=== PATIENT | male | born 1990 ===

== ENCOUNTER 2018-04-18 10:38 | Emergency (ER) | payer SELFPAY ==
[~2018-04-18] VITALS: Ht 175.3 cm; Wt 111.1 kg
--- NOTE | 2018-04-18 10:55 | ED Upper Extremity ---
General Stated Complaint: CP Source: patient Exam Limitations: no limitations History of Present Illness Date Seen by Provider: Apr 18, 2018 Time Seen by Provider: 10:54 Initial Comments to ER with sharp left sided chest pain worse with deep breathing since 6 AM this morning. Smokes one half pack of cigarettes per day. Onset: this morning Severity: moderate Pain/Injury Location: left other (chest) Method of Injury: unknown Modifying Factors: Worse With Movement Allergies and Home Medications Allergies Coded Allergies: No Known Drug Allergies (Unverified , 04/18/18) Home Medications Azithromycin 250 Mg Tablet, 250 MG PO UD TAKE 2 TABLETS ON DAY ONE THEN TAKE 1 TABLET DAILY FOR FOUR MORE DAYS Prescribed by: PADILLA VIGIL on 04/18/18 1112 Patient Home Medication List Home Medication List Reviewed: Yes Constitutional: see HPI EENTM: see HPI Respiratory: no symptoms reported; No cough, No short of breath Cardiovascular: no symptoms reported Genitourinary: no symptoms reported Musculoskeletal: no symptoms reported Skin: no symptoms reported, change in hair/nails Past Nfacsvw-Bsixdn-Wovvwo Hx Patient Social History Recent Foreign Travel: No Contact w/Someone Who Travel: No Physical Exam Vital Signs Vital Signs - First Documented 04/18/18 10:45 Temp 100.0 Pulse 75 Resp 18 B/P (MAP) 107/87 (94) Capillary Refill : General Appearance: WD/WN, no apparent distress HEENT: PERRL/EOMI, normal ENT inspection Neck: non-tender, full range of motion Respiratory: normal breath sounds, no respiratory distress, no accessory muscle use Gastrointestinal: normal bowel sounds, non tender Shoulder: normal inspection, non-tender Elbow/Forearm: normal inspection, non-tender Wrist: Yes normal inspection, Yes non-tender Hand: normal inspection, non-tender Neurologic/Tendon: normal sensation, normal motor functions, normal tendon functions Neurologic/Psychiatric: alert, normal mood/affect, oriented x 3 Skin: normal color, warm/dry Progress/Results/Core Measures Results/Orders My Orders Orders - PADILLA VIGIL APRN Ekg Tracing (04/18/18 10:52) Chest Pa/Lat (2 View) (04/18/18 10:52) Ibuprofen Tablet (Motrin Tablet) (04/18/18 11:00) Vital Signs/I&O 04/18/18 10:45 Temp 100.0 Pulse 75 Resp 18 B/P (MAP) 107/87 (94) Departure Communication (Admissions) she does have a temperature of 100 pleuritic left-sided chest pain but no cough. He is a smoker. I'll put him on some antibiotics and anti- inflammatories.he is neither tachycardic nor hypoxic Impression Primary Impression: Pleuritic chest pain Disposition: HOME, SELF-CARE Condition: Stable Departure-Patient Inst. Decision time for Depature: 11:11 Referrals: NO,LOCAL PHYSICIAN (PCP/Family) Primary Care Physician Patient Instructions: Pleuritic Chest Pain (DC) Add. Discharge Instructions: 1. Take either ibuprofen 600 mg to 800 mg every 8 hoursor naproxen 500 mg every 12 hours. Take the antibiotics as directed and return to ER for any worsening. Scripts Azithromycin (Azithromycin) 250 Mg Tablet 250 MG PO UD, #6 TAB TAKE 2 TABLETS ON DAY ONE THEN TAKE 1 TABLET DAILY FOR FOUR MORE DAYS Prov: PADILLA VIGIL APRN 04/18/18 Work/School Note: Work Release Form Date Seen in the Emergency Department: Apr 18, 2018 Return to Work: Apr 20, 2018 PADILLA VIGIL APRN Apr 18, 2018 10:55
[2018-04-18] MEDS ORDERED: IBUPROFEN 800 MG (MOTRIN) TAB PO ONE (11:00)
[2018-04-18] MEDS ORDERED: AZIT250T12 PO (11:12)
--- NOTE | 2018-04-18 11:38 | Diagnostic Imaging Report ---
INDICATION: Anterior chest pain. Time of exam: 11:22 AM No prior studies are available for comparison. The heart size is normal. The pulmonary vascularity is unremarkable. The lungs are clear. No infiltrate, effusion or pneumothorax is detected. Impression: No acute cardiopulmonary process is detected. Dictated by: Dictated on workstation # [id number]
[2018-04-18 11:59] VITALS: BP 140/72
== END 2018-04-18 12:05 | disposition home or self-care (01) ==
LOC: ER 10:42
DX: R07.81 Pleurodynia (principal); F17.210 Nicotine dependence, cigarettes, uncomplicated
CPT/HCPCS: 71046; 93005

== ENCOUNTER 2020-05-24 16:05 | Observation (INO) | payer SELFPAY ==
[~2020-05-24] VITALS: Ht 175.3 cm; Wt 108.4 kg
[~2020-05-24 16:05] MED LIST: AZIT250T12 PO
[2020-05-24] MEDS ORDERED: cefTRIAXone FOR IV USE 1,000 MG in WATER (STERILE) FOR INJECTION 10 ML IV STA (16:19)
[2020-05-24] MEDS ORDERED: KETOROLAC 30 MG/ML VIAL IVP STA (16:19)
[2020-05-24] MEDS ORDERED: LACTATED RINGERS 1,000 ML IV ONE (16:19)
--- NOTE | 2020-05-24 16:28 | ED EENT ---
History of Present Illness General Chief Complaint: Dental Problems/Pain Stated Complaint: ABCESS TOOTH Nursing Triage Note: pt woke up with pain ans swelling on left side of mouth. pt went to [facility] and they diagnosed pt with tooth abscess and prescribed amoxicillin. since this morning, swelling has progressed to the point that pt can no longer breathe out of nose. pt denies difficulty breathing/swallowing through mouth. Source: patient History of Present Illness Date Seen by Provider: May 24, 2020 Time Seen by Provider: 16:12 Initial Comments PT ARRIVES VIA POV--STATES HE WAS SENT HERE FROM [facility] --STATES HE WAS AT THE DENTAL CLINIC PT STATES HE HAS A DENTAL ABSCESS--HAS PAIN AND SWELLING TO LEFT SIDE OF FACE, BEGAN TODAY HAS BEEN HAVING PROBLEMS WITH TOOTH FOR THE LAST COUPLE OF MONTHS, BUT HAS NEVER BEEN THIS BAD WAS GIVEN RX FOR AUGMENTIN 875 MG TODAY, NO RX FOR PAIN MEDICATION PT DENIES FEVER NO PROBLEMS SWALLOWING OR BREATHING THROUGH MOUTH. LEFT SIDE OF NOSE IS SWOLLEN AND IS HAVING DIFFICULTY BREATHING THROUGH HIS NOSE. NO KNOWN SICK CONTACTS OR EXPOSURE TO COVID-19 PT WORKS AT "[employer] PCP: [facility] Allergies and Home Medications Allergies Coded Allergies: No Known Drug Allergies (Unverified , 04/18/18) Home Medications Azithromycin 250 Mg Tablet, 250 MG PO UD TAKE 2 TABLETS ON DAY ONE THEN TAKE 1 TABLET DAILY FOR FOUR MORE DAYS Prescribed by: PADILLA VIGIL on 04/18/18 1112 Patient Home Medication List Home Medication List Reviewed: Yes Review of Systems Review of Systems Constitutional: no symptoms reported; No chills, No diaphoresis, No fever Eyes: Other (SWELLING AROUND LEFT EYE) Ears: No Symptoms Reported Nose: other (SWELLING TO NOSE AND DECREASED ABILITY TO BREATHE THRU NOSE) Mouth: see HPI, pain, swelling; denies bloody discharge, denies clear discharge Throat: no symptoms reported; denies neck stiffness, denies hoarse, denies muffled Respiratory: no symptoms reported Cardiovascular: no symptoms reported Gastrointestinal: no symptoms reported Musculoskeletal: no symptoms reported Skin: no symptoms reported Neurological: No Symptoms Reported Hematologic/Lymphatic: No Symptoms Reported Immunological/Allergic: no symptoms reported Past Aaknvkx-Mpafxi-Yubfdz Hx Past Med/Social Hx: Reviewed and Corrections made Patient Social History Alcohol Use: Denies Use Recreational Drug Use: No Smoking Status: Current Everyday Smoker (1/2 PPD) Type Used: Cigarettes 2nd Hand Smoke Exposure: No Recent Foreign Travel: No Contact w/Someone Who Travel: No Recent Infectious Disease Expo: No Recent Hopitalizations: No Seasonal Allergies Seasonal Allergies: No Past Medical History Surgeries: No Respiratory: No Cardiac: No Neurological: No Genitourinary: No Gastrointestinal: No Musculoskeletal: No Endocrine: No HEENT: Yes (DENTAL CARIES) Cancer: No Psychosocial: No Integumentary: No Blood Disorders: No Physical Exam Vital Signs Vital Signs - First Documented 05/24/20 16:13 Temp 36.9 Pulse 92 Resp 20 B/P (MAP) 151/106 (121) Pulse Ox 97 O2 Delivery Room Air Height, Weight, BMI Height: 5'9.00" Weight: 245lbs. oz. 111.045739mg; 28.00 BMI Method:Stated General Appearance: WD/WN, no apparent distress, other (FLAT AFFECT. ) Eyes: left eye other (MILD LEFT PERIORBITAL EDEMA--BELOW THE EYE. ); bilateral eye PERRL, bilateral eye EOMI Ears: bilateral ear TM normal Nose: other (SWELLING TO LEFT SIDE OF NOSE/FACE) Mouth/Throat: other (MULTIPLE DENTAL CARIES, BUT LEFT UPPER PREMOLARS WITH DECAY AND SIGNIFICANT SWELLING/INFLAMMATION OF ADJACENT GUM TISSUE. NO DRAINAGE OR SIGNIFICANT FLUCTUANCE. MODERATE SWELLING TO LEFT MAXILLA AREA. 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 ) Skin: normal color, warm/dry Progress/Results/Core Measures Results/Orders Lab Results Laboratory Tests Test 05/24/20 16:20 Range/Units White Blood Count 9.6 4.3-11.0 10^3/uL Red Blood Count 4.98 4.35-5.85 10^6/uL Hemoglobin 15.6 13.3-17.7 G/DL Hematocrit 44 40-54 % Mean Corpuscular Volume 87 80-99 FL Mean Corpuscular Hemoglobin 31 25-34 PG Mean Corpuscular Hemoglobin Concent 36 32-36 G/DL Red Cell Distribution Width 12.2 10.0-14.5 % Platelet Count 341 130-400 10^3/uL Mean Platelet Volume 9.1 7.4-10.4 FL Neutrophils (%) (Auto) 70 42-75 % Lymphocytes (%) (Auto) 18 12-44 % Monocytes (%) (Auto) 7 0-12 % Eosinophils (%) (Auto) 5 0-10 % Basophils (%) (Auto) 1 0-10 % Neutrophils # (Auto) 6.7 1.8-7.8 X 10^3 Lymphocytes # (Auto) 1.7 1.0-4.0 X 10^3 Monocytes # (Auto) 0.6 0.0-1.0 X 10^3 Eosinophils # (Auto) 0.5 H 0.0-0.3 10^3/uL Basophils # (Auto) 0.1 0.0-0.1 10^3/uL Prothrombin Time 12.5 12.2-14.7 SEC INR Comment 0.9 0.8-1.4 Activated Partial Thromboplast Time 31 24-35 SEC Sodium Level 138 135-145 MMOL/L Potassium Level 3.8 3.6-5.0 MMOL/L Chloride Level 105 98-107 MMOL/L Carbon Dioxide Level 21 21-32 MMOL/L Anion Gap 12 5-14 MMOL/L Blood Urea Nitrogen 9 7-18 MG/DL Creatinine 0.91 0.60-1.30 MG/DL Estimat Glomerular Filtration Rate > 60 BUN/Creatinine Ratio 10 Glucose Level 108 H 70-105 MG/DL Lactic Acid Level 1.08 0.50-2.00 MMOL/L Calcium Level 9.1 8.5-10.1 MG/DL Corrected Calcium 8.7 8.5-10.1 MG/DL Total Bilirubin 0.5 0.1-1.0 MG/DL Aspartate Amino Transf (AST/SGOT) 19 5-34 U/L Alanine Aminotransferase (ALT/SGPT) 35 0-55 U/L Alkaline Phosphatase 87 40-136 U/L Total Protein 7.3 6.4-8.2 GM/DL Albumin 4.5 3.2-4.5 GM/DL Amylase Level 32 25-125 U/L Lipase 16 8-78 U/L My Orders Orders - JENN MARQUEZ DO Ed Iv/Invasive Line Start (05/24/20 16:19) Amylase (05/24/20 16:19) Cbc With Automated Diff (05/24/20 16:19) Comprehensive Metabolic Panel (05/24/20 16:19) Lactic Acid Analyzer (05/24/20 16:19) Lipase (05/24/20 16:19) Procalcitonin (Pct) (05/24/20 16:19) Protime With Inr (05/24/20 16:19) Partial Thromboplastin Time (05/24/20 16:19) Blood Culture (05/24/20 16:19) Ed Iv/Invasive Line Start (05/24/20 16:19) Lactated Ringers (Lr 1000 Ml Iv Solution (05/24/20 16:19) Ceftriaxone For Iv Use (Rocephin For I (05/24/20 16:19) Ketorolac Injection (Toradol Injection) (05/24/20 16:19) Ct Maxillofacial W (05/24/20 16:23) Iohexol Injection (Omnipaque 350 Mg/Ml 1 (05/24/20 17:00) Received Contrast (Hold Metformin- Contr (05/24/20 17:00) Ns (Ivpb) (Sodium Chloride 0.9% Ivpb Bag (05/24/20 17:00) Medications Given in ED Current Medications Medications Dose Ordered Sig/Merline Route Start Time Stop Time Status Last Admin Dose Admin Iohexol 75 ml ONCE ONCE IV 05/24/20 17:00 05/24/20 17:01 DC 05/24/20 17:00 75 ML Lactated Ringer's 1,000 ml @ 0 mls/hr Q0M ONCE IV 05/24/20 16:19 05/24/20 16:22 DC 05/24/20 16:33 1,000 MLS/HR Sodium Chloride 100 ml ONCE ONCE IV 05/24/20 17:00 05/24/20 17:01 DC 05/24/20 17:00 100 ML Vital Signs/I&O 05/24/20 16:13 Temp 36.9 Pulse 92 Resp 20 B/P (MAP) 151/106 (121) Pulse Ox 97 O2 Delivery Room Air Blood Pressure Mean: 121 Progress Progress Note : Progress Note NO DETERIORATION IN PT'S CONDITION DURING ER STAY Diagnostic Imaging Comments CT MAXILLOFACIALS--PER RADIOLOGIST REPORT AT 1733 IMPRESSION: 1. Significant left infraorbital and left maxillary soft tissue swelling with mild overlying skin thickening anterior to the maxilla. Findings are favored to relate to underlying cellulitis. Small periapical lucencies are present, including involving tooth #9 and 16 involving the maxilla. Therefore, small periapical abscesses, particularly involving the 9th tooth should be considered. 2. Additional findings, as described above. 3. Paranasal sinuses are essentially clear without air-fluid level. Reviewed: Reviewed by Me Departure Communication (Admissions) [id number]--SPOKE WITH DR. BADILLO, WITH [facility] [place]BSERVATION Impression Primary Impression: Dental abscess Additional Impressions: Dental caries Facial cellulitis Disposition: ADMITTED INPATIENT Condition: Stable Admissions Decision to Admit Reason: Admit from ER (General) Decision to Admit/Date: May 24, 2020 Time/Decision to Admit Time: 17:40 Departure-Patient Inst. Referrals: NO,LOCAL PHYSICIAN (PCP/Family) Primary Care Physician JENN MARQUEZ DO May 24, 2020 16:28
[2020-05-24 16:32] LABS: BASOPHILS # (AUTO) 0.1 10^3/uL (0.0-0.1); BASOPHILS % (AUTO) 1 % (0-10); EOSINOPHILS # (AUTO) 0.5 10^3/uL (0.0-0.3); EOSINOPHILS % (AUTO) 5 % (0-10); HEMATOCRIT 44 % (40-54); HEMOGLOBIN 15.6 G/DL (13.3-17.7); LYMPHOCYTES # (AUTO) 1.7 X 10^3 (1.0-4.0); LYMPHOCYTES % (AUTO) 18 % (12-44); MEAN CORPUSCULAR HEMOGLOBIN 31 PG (25-34); MEAN CORPUSCULAR HGB CONC 36 G/DL (32-36); MEAN CORPUSCULAR VOLUME 87 FL (80-99); MEAN PLATELET VOLUME 9.1 FL (7.4-10.4); MONOCYTES # (AUTO) 0.6 X 10^3 (0.0-1.0); MONOCYTES % (AUTO) 7 % (0-12); NEUTROPHILS # (AUTO) 6.7 X 10^3 (1.8-7.8); NEUTROPHILS % (AUTO) 70 % (42-75); PLATELET COUNT 341 10^3/uL (130-400); RED CELL DISTRIBUTION WIDTH 12.2 % (10.0-14.5); WHITE BLOOD COUNT 9.6 10^3/uL (4.3-11.0)
[2020-05-24 16:45] LABS: INR 0.9 (0.8-1.4); PROTHROMBIN TIME PATIENT 12.5 SEC (12.2-14.7)
[2020-05-24 16:48] LABS: ALBUMIN 4.5 GM/DL (3.2-4.5); CHLORIDE 105 MMOL/L (98-107); POTASSIUM 3.8 MMOL/L (3.6-5.0); SODIUM 138 MMOL/L (135-145)
[2020-05-24 16:49] LABS: AMYLASE 32 U/L (25-125)
[2020-05-24 16:50] LABS: CALCIUM 9.1 MG/DL (8.5-10.1)
[2020-05-24 16:51] LABS: GLUCOSE 108 MG/DL (70-105); TOTAL PROTEIN 7.3 GM/DL (6.4-8.2)
[2020-05-24 16:52] LABS: BILIRUBIN,TOTAL 0.5 MG/DL (0.1-1.0); CARBON DIOXIDE 21 MMOL/L (21-32)
[2020-05-24 16:54] LABS: ALKALINE PHOSPHATASE 87 U/L (40-136); CREATININE SERUM 0.91 MG/DL (0.60-1.30); GFR ESTIMATED > 60
[2020-05-24 16:55] LABS: BUN/CREATININE RATIO 10
[2020-05-24 16:57] LABS: ALANINE AMINOTRANSFERASE 35 U/L (0-55)
[2020-05-24 16:58] LABS: LIPASE 16 U/L (8-78)
[2020-05-24] MEDS ORDERED: HOLD METFORMIN - RECEIVED CONTRAST 20 ML VIAL IV SCH (17:00)
[2020-05-24] MEDS ORDERED: NS 100 ML (IVPB) BAG IV ONE (17:00)
[2020-05-24] MEDS ORDERED: IOHEXOL 350 MG/ML 100 ML (OMNIPAQUE 350) VIAL IV ONE (17:00)
--- NOTE | 2020-05-24 17:20 | Diagnostic Imaging Report ---
PROCEDURE: CT maxillofacial with contrast. TECHNIQUE: After intravenous administration of contrast, axial images were obtained through the face and reformatted into coronal and sagittal planes. Auto Exposure Controls were utilized during the CT exam to meet ALARA standards for radiation dose reduction. INDICATION: Pain, swelling. COMPARISON: None available. FINDINGS: Intracranial contents are grossly unremarkable. The globes are intact. Mild left periorbital soft tissue swelling is present, greatest within the left infraorbital location. Retrobulbar fat bilaterally is unremarkable. The lamina papyracea are intact. No temporomandibular joint dislocation. Scattered periodontal disease is present. Additionally, a few small periapical cysts and periapical lucencies are noted. Parapharyngeal fat is symmetric and well maintained. Muscles of mastication are unremarkable. Significant fat stranding and skin thickening is identified anterior to the maxilla. No discrete focal fluid collection at this location. Fat within the subcutaneous tissues overlying the left maxilla and slightly overlying the left mandible. No definite osseous destruction or cortical breakthrough. The bilateral ostiomeatal complexes are patent, though the right is narrowed secondary to mucosal thickening. Destiny bullosa within the right middle turbinate. Mild leftward deviation of the nasal septum with associated leftward-projecting nasal spur. No acute facial fracture. The visualized airway is clear. IMPRESSION: 1. Significant left infraorbital and left maxillary soft tissue swelling with mild overlying skin thickening anterior to the maxilla. Findings are favored to relate to underlying cellulitis. Small periapical lucencies are present, including involving tooth #9 and 16 involving the maxilla. Therefore, small periapical abscesses, particularly involving the 9th tooth should be considered. 2. Additional findings, as described above. 3. Paranasal sinuses are essentially clear without air-fluid level. Dictated by: Dictated on workstation # [id number]
[2020-05-24 18:50] VITALS: BP 144/74
[2020-05-24] MEDS ORDERED: CATHETER FLUSH 10 ML SYR IV PRN (19:00)
--- NOTE | 2020-05-24 19:00 | NUR ---
RUDY PAINTING II admitted to room 408-1, with an admitting diagnosis of TOOTH ABCESS, on 05/24/20 from ED via WHEELCHAIR, accompanied by ED STAFF.RUDY PAINTING II introduced to surroundings, call light, bed controls, phone, TV, temperature control, lights, meal times, smoking policy, visitor policy, side rail policy, bathrooms and showers. Patient Rights given to patient in the handbook. RUDY PAINTING II verbalizes understanding that [facility] is not responsible for the loss or damage to any personal effects or valuables that are kept in the patients posession during their hospitalization. RUDY PAINTING II verbalizes understanding of Interdisciplinary Patient Education. Patient and/or family were informed about the Rapid Response Team and its purpose.
[2020-05-24 19:37] VITALS: BP 144/74
[2020-05-24] MEDS: D5 1/2 NS W/KCL 20 MEQ/L 1,000 ML IV SCH (21:09)
[2020-05-24] MEDS: KETOROLAC 30 MG/ML VIAL IV PRN (21:12)
--- OUTSIDE RECORDS SUMMARY | 2020-05-24 21:38 | XMS REPORT | Continuity of Care Document ---
Demographics Address [address] [place] [address] Preferred Language Unknown Marital Status Unknown Lutheran Affiliation Unknown Race Unknown Ethnic Group Unknown Author Organization Unknown Address Unknown Phone Unavailable Allergies Active Description Code Type Severity Reaction Onset Reported/Identified Relationship to Patient Clinical Status Yes NO KNOWN DRUG ALLERGIES UNKNOWN NO KNOWN DRUG ALLERG Yes NO KNOWN DRUG ALLERGIES UNKNOWN UNKNOWN Yes No Known Drug Allergies [id number] Drug Allergy Unknown N/A 04/18/2018 Medications Medication Packaging Start Date St op Date Route Dosage Sig FAMOTIDINE VIAL INJ 20 MG/2CC (PEPCID VIAL ) MG 03/05/2019 03/05/2019 ONCE&1038 NORMAL SALINE 1000CC IV BAG INJ 0.9 % (NS 1000CC IV BAG) ml 03/05/2019 03/20/2019 CONTINUOUSEVERY 0 Hour FENTANYL INJ 100 MCG/2CC VIAL MCG 03/05/2019 03/05/2019 ONCE&1040 PROCHLORPERAZINE VIAL INJ 10 MG/2CC (COMPAZINE VIAL) MG 03/05/2019 03/12/2019 PRN Q6H KETOROLAC VIAL INJ 30 MG/CC (TORADOL VIAL) MG 03/05/2019 03/06/2019 PRN EVERY 6 Hour ONDANSETRON VIAL INJ 4 MG/2CC (ZOFRAN 2CC VIAL) MG 03/05/2019 03/12/2019 PRN Q4H METOCLOPRAMIDE VIAL INJ 10 M G/2CC (REGLAN 2CC VIAL) MG 03/05/2019 03/15/2019 PRN Q8H D5 NORMAL SALINE 1000CC INJ (D5NS 1000CC IV BAG) ml 03/05/2019 03/12/2019 CONTINUOUSEVERY 0 Hour D5 NORMAL SALINE 1000CC INJ (D5NS 1000CC IV BAG) ml 03/05/2019 03/12/2019 CONTINUOUSEVERY 0 Hour ACETAMINOPHEN ORAL TABLET 325mg(Tylenol) MG 03/05/2019 04/04/2019 PRN EVERY 6 Hour KETOROLAC VIAL INJ 30 MG/CC (TORADOL VIAL) MG 03/05/2019 03/10/2019 Q6H&0600,1200,1800,2359 ONDANSETRON VIAL INJ 4 MG/2CC (ZOFRAN 2CC VIAL) MG 03/05/2019 03/12/2019 PRN Q4H Piperacillin-tazobactam 3.37 5 Gm IV recon soln (Zosyn) GM 03/05/2019 03/12/2019 Q6H&0600,1200,1800,2359 METOCLOPRAMIDE VIAL INJ 10 M G/2CC (REGLAN 2CC VIAL) MG 03/05/2019 03/15/2019 PRN Q8H Problems Date Dx Coded Attending Type Code Diagnosis Diagnosed By 04/18/2018 PADILLA VIGIL APRN Ot F17.210 NICOTINE DEPENDENCE, CIGARETTES, UNCOMPL 04/18/2018 PADILLA VIGIL APRN Ot R07.81 PLEURODYNIA 04/18/2018 PADILLA VIGIL APRN Ot R07.89 OTHER CHEST PAIN 04/21/2018 PADILLA VIGIL APRN Ot F17.210 NICOTINE DEPENDENCE, CIGARETTES, UNCOMPL 04/21/2018 PADILLA VIGIL APRN Ot R07.81 PLEURODYNIA 04/21/2018 PADILLA VIGIL APRN Ot R07.89 OTHER CHEST PAIN 03/05/2019 LEISURE, LYNIETA W 789.0 ABDOMINAL PAIN 03/05/2019 LEISURE, LYNIETA W R10.9 UNSPECIFIED ABDOMINAL PAIN 03/05/2019 LEISURE, LYNIETA W 789.0 ABDOMINAL PAIN 03/05/2019 LEISURE, LYNIETA W R10.9 UNSPECIFIED ABDOMINAL PAIN 03/05/2019 LEISURE, LYNIETA W 789.01 ABDOMINAL PAIN, RIGHT UPPER QUADRANT 03/05/2019 LEISURE, LYNIETA W R10.11 RIGHT UPPER QUADRANT PAIN 03/05/2019 Helen Stewart W 560.1 PARALYTIC ILEUS 03/05/2019 Helen Stewart W 787.0 NAUSEA AND VOMITING 03/05/2019 Helen Stewart K56.0 PARALYTIC ILEUS 03/05/2019 Helen Stewart R11.2 NAUSEA WITH VOMITING, UNSPECIFIED 03/05/2019 Helen Stewart W 558.9 OTHER AND UNSPECIFIED NONINFECTIOUS GASTROENTERITIS AN D COLITIS 03/05/2019 Helen Stewart W 560.1 PARALYTIC ILEUS 03/05/2019 Terry, [place] W 787.0 NAUSEA AND VOMITING 03/05/2019 Helen Stewart W K52.9 NONINFECTIVE GASTROENTERITIS AND COLITIS, UNSPECIFIED 03/05/2019 Helen Stewart W K56.0 PARALYTIC ILEUS 03/05/2019 Helen Stewart W R11.2 NAUSEA WITH VOMITING, UNSPECIFIED 03/06/2019 Helen Stewart W 536.2 PERSISTENT VOMITING 03/06/2019 Helen Stewart W 558.9 OTHER AND UNSPECIFIED NONINFECTIOUS GASTROENTERITIS AN D COLITIS 03/06/2019 Helne Stewart W 560.1 PARALYTIC ILEUS 03/06/2019 Helen Stewart W 780.60 FEVER, UNSPECIFIED 03/06/2019 Helen Stewart W 787.0 NAUSEA AND VOMITING 03/06/2019 Helen Stewart W 789.01 ABDOMINAL PAIN, RIGHT UPPER QUADRANT 03/06/2019 Helen Stewart W 789.06 ABDOMINAL PAIN, EPIGASTRIC 03/06/2019 Helen Stewart W K52.9 NONINFECTIVE GASTROENTERITIS AND COLITIS, UNSPECIFIED 03/06/2019 Helen Stewart W K56.0 PARALYTIC ILEUS 03/06/2019 Helen Stewart W R10.11 RIGHT UPPER QUADRANT PAIN 03/06/2019 Helen Stewart W R10.13 EPIGASTRIC PAIN 03/06/2019 Helen Stewart W R11.10 VOMITING, UNSPECIFIED 03/06/2019 Helen Stewart W R11.2 NAUSEA WITH VOMITING, UNSPECIFIED 03/06/2019 Helen Stewart W R50.9 FEVER, UNSPECIFIED Procedures There is no data. Results Test Result Range Lipase - 03/05/19 10:45 Lipase 13 U/L 7-59 Urinalysis - 03/05/19 10:45 Icotest N/A Negative Urine Volume Urine Volume Sufficient (10mL) Urine-Appearance Clear Clear Urine-Bacteria Trace Urine-Bilirubin Negative Negative Urine-Blood Negative Negative Urine-Color Yellow Colorless-[place] ow Urine-Epithelial Cells 0-5/HPF Urine-Glucose Negative Negative Urine-Ketones Negative Negative Urine-Leukocytes Negative Negative Urine-Nitrite Negative Negative Urine-Other Urine Saved if Culture Need ed (48hrs from time of collection) Urine-pH 5.0 5-8.5 Urine-Protein Negative Negative Urine-RBC Negative Urine-Specific [place] 1.025 1.000-1 .030 Urine-WBC Negative Urobilinogen 0.2 E.U./dL 0.2-1.0 BMP - 03/06/19 07:00 Anion Gap 13 6-14 BUN 13 mg/dL 5-25 Calcium 8.8 mg/dL 8.3-10.4 Chloride 109 mmol/L 95-114 CO2 23 mEq/L 22-33 Creat 0.97 mg/dL 0.50-1.50 eGFR 93 mL/min/1.73m2 >59 Glucose 118 mg/dL 70-110 Osmo 292 280-295 Potassium 3.6 mmol/L 3.5-5.3 Sodium 141 mmol/L 134-148 Complete blood count (CBC) with automate d white blood cell (WBC) differential - 05/24/20 16:20 Blood leukocytes automated count (number/volume) 9.6 10*3/uL 4.3-11.0 Blood erythrocytes automated count (number/volume) 4.98 10*6/uL 4.35-5.85 Venous blood hemoglobin measurement (mass/volume) 15.6 g/dL 13.3-17.7 Blood hematocrit (volume fraction) 44 % 40-54 Automated erythrocyte mean corpuscular volume 87 [ foz_us] 80-99 Automated erythrocyte mean corpuscular h emoglobin (mass per erythrocyte) 31 pg 25-34 Automated erythrocyte mean corpuscular h emoglobin concentration measurement (mass/volume) 36 g/dL 32-36 Automated erythrocyte distribution width ratio 12. 2 % 10.0- 14.5 Automated blood platelet count (count/volume) 341 10*3/uL 130-400 Automated blood platelet mean volume measurement 9.1 [foz_us] 7.4-10.4 Automated blood neutrophils/100 leukocytes 70 % 42-75 Automated blood lymphocytes/100 leukocytes 18 % 12-44 Blood monocytes/100 leukocytes 7 % 0-12 Automated blood eosinophils/100 leukocytes 5 % 0-10 Automated blood basophils/100 leukocytes 1 % 0-10 Blood neutrophils automated count (number/volume) 6.7 10*3 1.8-7.8 Blood lymphocytes automated count (number/volume) 1.7 10*3 1.0-4.0 Blood monocytes automated count (number/volume) 0. 6 10*3 0.0-1.0 Automated eosinophil count 0.5 10*3/uL 0 .0-0.3 Automated blood basophil count (count/volume) 0.1 10*3/uL 0.0-0.1 PT panel in platelet poor plasma by coag ulation assay - 05/24/20 16:20 Prothrombin time (PT) in platelet poor plasma by coagu lation assay 12.5 s 12.2-14.7 INR in platelet poor plasma or blood by coagulation as say 0.9 0.8-1.4 Activated partial thromboplastin time (a PTT) in platelet poor plasma bycoagulation assay - 05/24/20 16:20 Activated partial thromboplastin time (a PTT) in platelet poor plasma bycoagulation assay 31 s 24-35 Comprehensive metabolic panel - 05/24/20 16:20 Serum or plasma sodium measurement (moles/volume) 138 mmol/L 135-145 Serum or plasma potassium measurement (moles/volume) 3.8 mmol/L 3.6-5.0 Serum or plasma chloride measurement (moles/volume) 105 mmol/L 98-107 Carbon dioxide 21 mmol/L 21-32 Serum or plasma anion gap determination (moles/volume) 12 mmol/L 5-14 Serum or plasma urea nitrogen measurement (mass/volume ) 9 mg/dL 7-18 Serum or plasma creatinine measurement (mass/volume) 0.91 mg/dL 0.60-1.30 Serum or plasma urea nitrogen/creatinine mass ratio 10 NRG Serum or plasma creatinine measurement w ith calculation of estimated glomerular filtration rate > NRG Serum or plasma glucose measurement (mass/volume) 108 mg/dL 70-105 Serum or plasma calcium measurement (mass/volume) 9.1 mg/dL 8.5-10.1 Serum or plasma total bilirubin measurement (mass/volu me) 0.5 mg/dL 0.1-1.0 Serum or plasma alkaline phosphatase fran surement (enzymatic activity/volume) 87 U/L 40-136 Serum or plasma aspartate aminotransfera se measurement (enzymatic activity/volume) 19 U/L 5-34 Serum or plasma alanine aminotransferase measurement (enzymatic activity/volume) 35 U/L 0-55 Serum or plasma protein measurement (mass/volume) 7.3 g/dL 6.4-8.2 Serum or plasma albumin measurement (mass/volume) 4.5 g/dL 3.2-4.5 CALCIUM CORRECTED 8.7 mg/dL 8.5-10.1 PROCALCITONIN (PCT) - 05/24/20 16:20 PROCALCITONIN (PCT) 0.02 ng/mL <0.10 Blood lactic acid measurement (moles/vol ume) - 05/24/20 16:20 Blood lactic acid measurement (moles/volume) 1.08 mmol/L 0.50-2.00 Serum or plasma amylase measurement (enz ymatic activity/volume) - 05/24/20 16:20 Serum or plasma amylase measurement (enzymatic activit y/volume) 32 U/L 25-125 Lipase - 05/24/20 16:20 Lipase 16 U/L 8-78 Encounters ACCT No. Visit Date/Time Discharge Status Pt. Type Provider Facility Loc./Unit Complaint [id number] 03/05/2019 15:45:00 03/06/2019 09:55: 00 DIS Outpatient [facility] MED-SURG [id number] 03/05/2019 15:15:00 03/05/2019 23:59: 00 DIS Outpatient Terry, [facility] [id number] 03/05/2019 10:25:00 03/05/2019 12:40: 00 DIS Outpatient [facility] ER [id number] 03/05/2019 10:39:39 Document Registration [id number] 04/18/2018 10:42:00 018 12:05:00 DIS Emergency PADILLA VIGIL ADJUDICATION SPECIALIST Via [facility] ER CP [id number] 05/24/2020 16:33:00 Document Registration [id number] 04/22/2020 08:00:00 04/22/2020 23:59: 59 CLS Outpatient RAYMOND LAMARGRACIELA ESSENCE SERRNAO [id number] 03/05/2019 10:25:00 Document Registration
--- OUTSIDE RECORDS SUMMARY | 2020-05-24 22:39 | XMS REPORT | Continuity of Care Document ---
Demographics Address [address] [place] [address] Preferred Language Unknown Marital Status Unknown Quaker Affiliation Unknown Race Unknown Ethnic Group Unknown Author Organization Unknown Address Unknown Phone Unavailable Allergies Active Description Code Type Severity Reaction Onset Reported/Identified Relationship to Patient Clinical Status Yes NO KNOWN DRUG ALLERGIES UNKNOWN NO KNOWN DRUG ALLERG Yes NO KNOWN DRUG ALLERGIES UNKNOWN UNKNOWN Yes No Known Drug Allergies [id number] Drug Allergy Unknown N/A 04/18/2018 Medications Medication [...] UNSPECIFIED NONINFECTIOUS GASTROENTERITIS AN D COLITIS 03/06/2019 Helen Stewart W 560.1 PARALYTIC ILEUS 03/06/2019 Helen [...] Negative Urine-Blood Negative Negative Urine-Color Yellow Colorless-[place] ow Urine-Epithelial Cells 0-5/HPF Urine-Glucose Negative Negative Urine-Ketones Negative Negative Urine-Leukocytes Negative Negative Urine-Nitrite Negative Negative Urine-Other Urine Saved if Culture Need ed (48hrs from time of collection) Urine-pH 5.0 5-8.5 Urine-Protein Negative Negative Urine-RBC Negative Urine-Specific [place] 1.025 1.000-1 .030 Urine-WBC Negative Urobilinogen 0.2 [...] Status Pt. Type Provider Facility Loc./Unit Complaint [id number] 03/05/2019 15:45:00 03/06/2019 09:55: 00 DIS Outpatient [facility] MED-SURG [id number] 03/05/2019 15:15:00 03/05/2019 23:59: 00 DIS Outpatient Terry, [facility] [id number] 03/05/2019 10:25:00 03/05/2019 12:40: 00 DIS Outpatient [facility] ER [id number] 03/05/2019 10:39:39 Document Registration [id number] 04/18/2018 10:42:00 018 12:05:00 DIS Emergency PADILLA VIGIL TECHNOLOGY AUDITOR Via [facility] ER CP [id number] 05/24/2020 16:33:00 Document Registration [id number] 04/22/2020 08:00:00 04/22/2020 23:59: 59 CLS Outpatient RAYMOND LAMARGRACIELA ESSENCE SERRANO [id number] 03/05/2019 10:25:00 Document Registration
[2020-05-25 00:11] VITALS: BP 126/63
[2020-05-25] MEDS: D5 1/2 NS W/KCL 20 MEQ/L 1,000 ML IV SCH ×4 (01:53→19:09)
[2020-05-25 04:00] VITALS: BP 138/71
[2020-05-25 06:37] LABS: BASOPHILS % (AUTO) 1 % (0-10); EOSINOPHILS # (AUTO) 0.4 10^3/uL (0.0-0.3); EOSINOPHILS % (AUTO) 6 % (0-10); HEMATOCRIT 42 % (40-54); HEMOGLOBIN 14.8 G/DL (13.3-17.7); LYMPHOCYTES # (AUTO) 1.3 X 10^3 (1.0-4.0); LYMPHOCYTES % (AUTO) 17 % (12-44); MEAN CORPUSCULAR HEMOGLOBIN 31 PG (25-34); MEAN CORPUSCULAR HGB CONC 35 G/DL (32-36); MEAN CORPUSCULAR VOLUME 88 FL (80-99); MEAN PLATELET VOLUME 9.6 FL (7.4-10.4); MONOCYTES # (AUTO) 0.6 X 10^3 (0.0-1.0); MONOCYTES % (AUTO) 8 % (0-12); NEUTROPHILS # (AUTO) 5.1 X 10^3 (1.8-7.8); NEUTROPHILS % (AUTO) 69 % (42-75); PLATELET COUNT 295 10^3/uL (130-400); RED CELL DISTRIBUTION WIDTH 12.2 % (10.0-14.5); WHITE BLOOD COUNT 7.4 10^3/uL (4.3-11.0)
[2020-05-25 06:44] LABS: ALBUMIN 4.1 GM/DL (3.2-4.5); CHLORIDE 107 MMOL/L (98-107); POTASSIUM 4.2 MMOL/L (3.6-5.0); SODIUM 138 MMOL/L (135-145)
[2020-05-25 06:45] LABS: CALCIUM 8.7 MG/DL (8.5-10.1)
[2020-05-25 06:46] LABS: GLUCOSE 126 MG/DL (70-105)
[2020-05-25 06:47] LABS: TOTAL PROTEIN 6.6 GM/DL (6.4-8.2)
[2020-05-25 06:48] LABS: BILIRUBIN,TOTAL 0.6 MG/DL (0.1-1.0); CARBON DIOXIDE 20 MMOL/L (21-32)
[2020-05-25 06:50] LABS: ALKALINE PHOSPHATASE 71 U/L (40-136); CREATININE SERUM 0.81 MG/DL (0.60-1.30); GFR ESTIMATED > 60
[2020-05-25 06:51] LABS: BUN/CREATININE RATIO 7
[2020-05-25 06:53] LABS: ALANINE AMINOTRANSFERASE 33 U/L (0-55)
[2020-05-25 07:44] VITALS: BP_SYST 145; BP_SYST 163; BP_DIAS 51; BP_DIAS 84
[2020-05-25] MEDS ORDERED: IBUP-2473 PO (08:15)
[2020-05-25] MEDS ORDERED: DIPH25CA79 PO (08:15)
[2020-05-25] MEDS ORDERED: CALC-899 PO (08:15)
[2020-05-25] MEDS ORDERED: AMOX-358 PO (08:15)
[2020-05-25] MEDS: KETOROLAC 30 MG/ML VIAL IV PRN ×3 (08:28→20:55)
[2020-05-25] MEDS: ACETAMINOPHEN 500 MG TAB (TYLENOL) PO PRN ×2 (08:29→17:54)
--- NOTE | 2020-05-25 08:56 | NUR ---
SPOKE WITH THE PT (HE HAD HIS MED BOTTLE IN HIS ROOM) TO COMPLETE THE MED REC AMOX/CLAV 875/125MG LAST FILLED #20/10 DS OTC MEDS: IBUPROFEN BENADRYL WAN PARISER PLUS GAS
[2020-05-25 11:23] VITALS: BP 132/66
[2020-05-25 15:58] VITALS: BP 145/72
[2020-05-25] MEDS ORDERED: cefTRIAXone 1,000 MG/SWFI 10 ML IV PUSH IV SCH ×2 (16:00)
--- NOTE | 2020-05-25 17:17 | History & Physical ---
HPI History of Present Illness: 30 yo M that presented with facial swelling x 1 day. States that he started feeling some pain and swelling yesterday but then when he was at work he started getting numbness and noticed that his face was getting swollen. Denies any vision changes or shortness of breath. He has been able to eat and drink normally. States that he saw a dentist last week and was started on antibiotics and then has an upcoming appt on saturday to get treatment. Source: patient Date seen by provider: May 25, 2020 Time Seen by Provider: 10:15 Attending Physician Jeanine Dominguez MD PCP No,Local Physician Consult Date of Admission May 24, 2020 at 17:39 Home Medications Home Medications Reviewed patient Home Medication Reconciliation performed by pharmacy medication reconciliations geochemical laboratory technician and/or nursing. Patients Allergies have been reviewed. Allergies Coded Allergies: No Known Drug Allergies (Unverified , 04/18/18) [id number]-Pddsoy Hx Patient Social History Alcohol Use: Denies Use Recreational Drug Use: No Smoking Status: Current Everyday Smoker (1/2 PPD) Type Used: Cigarettes 2nd Hand Smoke Exposure: No Recent Foreign Travel: No Contact w/other who traveled: No Recent Hopitalizations: No Recent Infectious Disease Expo: No Past Medical History Dental Caries Review of Systems ([facility]) Constitutional: no symptoms reported; No chills, No fever EENTM: mouth pain; No blurred vision, No double vision, No throat pain, No throat swelling Respiratory: no symptoms reported; No cough, No dyspnea on exertion, No short of breath Cardiovascular: no symptoms reported; No chest pain, No edema Gastrointestinal: no symptoms reported; No abdominal pain, No constipation, No diarrhea, No nausea, No vomiting Genitourinary: no symptoms reported; No dysuria, No frequency, No hematuria Musculoskeletal: no symptoms reported; No back pain, No joint pain Skin: no symptoms reported Psychiatric/Neurological: No Symptoms Reported Reviewed Test Results Reviewed Test Results Lab Laboratory Tests Test 05/25/20 06:20 Range/Units White Blood Count 7.4 4.3-11.0 10^3/uL Red Blood Count 4.76 4.35-5.85 10^6/uL Hemoglobin 14.8 13.3-17.7 G/DL Hematocrit 42 40-54 % Mean Corpuscular Volume 88 80-99 FL Mean Corpuscular Hemoglobin 31 25-34 PG Mean Corpuscular Hemoglobin Concent 35 32-36 G/DL Red Cell Distribution Width 12.2 10.0-14.5 % Platelet Count 295 130-400 10^3/uL Mean Platelet Volume 9.6 7.4-10.4 FL Neutrophils (%) (Auto) 69 42-75 % Lymphocytes (%) (Auto) 17 12-44 % Monocytes (%) (Auto) 8 0-12 % Eosinophils (%) (Auto) 6 0-10 % Basophils (%) (Auto) 1 0-10 % Neutrophils # (Auto) 5.1 1.8-7.8 X 10^3 Lymphocytes # (Auto) 1.3 1.0-4.0 X 10^3 Monocytes # (Auto) 0.6 0.0-1.0 X 10^3 Eosinophils # (Auto) 0.4 H 0.0-0.3 10^3/uL Basophils # (Auto) 0.0 0.0-0.1 10^3/uL Sodium Level 138 135-145 MMOL/L Potassium Level 4.2 3.6-5.0 MMOL/L Chloride Level 107 98-107 MMOL/L Carbon Dioxide Level 20 L 21-32 MMOL/L Anion Gap 11 5-14 MMOL/L Blood Urea Nitrogen 6 L 7-18 MG/DL Creatinine 0.81 0.60-1.30 MG/DL Estimat Glomerular Filtration Rate > 60 BUN/Creatinine Ratio 7 Glucose Level 126 H 70-105 MG/DL Calcium Level 8.7 8.5-10.1 MG/DL Corrected Calcium 8.6 8.5-10.1 MG/DL Total Bilirubin 0.6 0.1-1.0 MG/DL Aspartate Amino Transf (AST/SGOT) 18 5-34 U/L Alanine Aminotransferase (ALT/SGPT) 33 0-55 U/L Alkaline Phosphatase 71 40-136 U/L Total Protein 6.6 6.4-8.2 GM/DL Albumin 4.1 3.2-4.5 GM/DL Physical Exam-([facility]) Physical Exam Vital Signs VS - Last 72 Hours, by Label 05/24/20 05/24/20 05/24/20 05/24/20 16:13 18:41 18:50 19:27 Temp 36.9 36.7 Pulse 92 77 77 Resp 20 18 18 B/P (MAP) 151/106 (121) 136/82 144/74 Pulse Ox 97 97 96 O2 Delivery Room Air Room Air Room Air Room Air 05/24/20 05/25/20 05/25/20 05/25/20 19:37 00:11 04:00 07:44 Temp 36.7 36.5 36.7 36.5 Pulse 77 72 84 89 Resp 18 20 21 20 B/P (MAP) 144/74 (97) 126/63 (84) 138/71 (93) 163/84 (110) Pulse Ox 96 97 96 96 O2 Delivery Room Air Room Air Room Air Room Air 05/25/20 05/25/20 05/25/20 08:59 11:23 15:58 Temp 36.6 36.2 Pulse 82 77 Resp 18 17 B/P (MAP) 132/66 (88) 145/72 (96) Pulse Ox 96 94 94 O2 Delivery Room Air Room Air Room Air Capillary Refill : Less Than 3 Seconds General Appearance: WD/WN, no apparent distress HEENT: PERRL/EOMI, other (Left eye with swelling and edema, ttp along upper jaw line) Neck: non-tender, full range of motion, supple Respiratory: chest non-tender, lungs clear, normal breath sounds, no respiratory distress, no accessory muscle use Cardiovascular: normal peripheral pulses, regular rate, rhythm, no edema, no murmur Gastrointestinal: normal bowel sounds, non tender, soft, no organomegaly Back: no CVA tenderness, no vertebral tenderness Extremities: normal range of motion, non-tender, normal inspection, no pedal edema, no calf tenderness, normal capillary refill Neurologic/Psychiatric: scale tester II-XII nml as tested, no motor/sensory deficits, alert, normal mood/affect, oriented x 3 Skin: normal color, warm/dry Lymphatic: no adenopathy Assessment/Plan Assessment/Plan Admission Status: Observation (1) Facial cellulitis Status: Acute Assessment & Plan: - Swelling and pain has improved, continue IV antibiotics, likely home tomorrow on PO antibiotics with f.u dental on Saturday (2) Dental abscess Status: Acute (3) HTN (hypertension) Status: Acute Assessment & Plan: - Will start lisinopril, monitor for improvement Clinical Quality Measures DVT/VTE Risk/Contraindication: Risk Factor Score Per Nursin RFS Level Per Nursing on Admit: 1=Low/No VTE PPX JEANINE DOMINGUEZ MD May 25, 2020 17:17
[2020-05-25] MEDS: lisINopril 10 MG (PRINIVIL) TABLET PO SCH (17:54)
[2020-05-25 20:06] VITALS: BP 160/83
[2020-05-26] VITALS: BP 131/83
[2020-05-26] MEDS: D5 1/2 NS W/KCL 20 MEQ/L 1,000 ML IV SCH ×2 (02:06→09:05)
[2020-05-26 04:40] VITALS: BP 139/83
[2020-05-26] MEDS: ACETAMINOPHEN 500 MG TAB (TYLENOL) PO PRN (05:21)
[2020-05-26 06:06] LABS: BASOPHILS % (AUTO) 1 % (0-10); EOSINOPHILS # (AUTO) 0.5 10^3/uL (0.0-0.3); EOSINOPHILS % (AUTO) 7 % (0-10); HEMATOCRIT 42 % (40-54); HEMOGLOBIN 14.6 G/DL (13.3-17.7); LYMPHOCYTES # (AUTO) 1.7 X 10^3 (1.0-4.0); LYMPHOCYTES % (AUTO) 24 % (12-44); MEAN CORPUSCULAR HEMOGLOBIN 30 PG (25-34); MEAN CORPUSCULAR HGB CONC 35 G/DL (32-36); MEAN CORPUSCULAR VOLUME 88 FL (80-99); MEAN PLATELET VOLUME 9.6 FL (7.4-10.4); MONOCYTES # (AUTO) 0.6 X 10^3 (0.0-1.0); MONOCYTES % (AUTO) 8 % (0-12); NEUTROPHILS # (AUTO) 4.3 X 10^3 (1.8-7.8); NEUTROPHILS % (AUTO) 61 % (42-75); PLATELET COUNT 292 10^3/uL (130-400); RED CELL DISTRIBUTION WIDTH 12.2 % (10.0-14.5)
[2020-05-26 06:25] LABS: BUN/CREATININE RATIO 8; CALCIUM 8.9 MG/DL (8.5-10.1); CARBON DIOXIDE 20 MMOL/L (21-32); CHLORIDE 108 MMOL/L (98-107); CREATININE SERUM 0.85 MG/DL (0.60-1.30); GFR ESTIMATED > 60; GLUCOSE 103 MG/DL (70-105); POTASSIUM 3.8 MMOL/L (3.6-5.0); SODIUM 140 MMOL/L (135-145)
[2020-05-26 07:40] VITALS: BP 158/74
[2020-05-26] MEDS: KETOROLAC 30 MG/ML VIAL IV PRN (09:05)
[2020-05-26] MEDS: lisINopril 10 MG (PRINIVIL) TABLET PO SCH (09:05)
--- NOTE | 2020-05-26 10:54 | Discharge Summary ---
Diagnosis/Chief Complaint Date of Admission May 24, 2020 at 17:39 Date of Discharge 05/26/2020 Admission Diagnosis Admission Diagnosis See problem list Discharge Diagnosis See Below Problems/Diagnosis: (1) Facial cellulitis Assessment & Plan: - Swelling and pain has improved, continue IV antibiotics, likely home tomorrow on PO antibiotics with f.u dental on Saturday 05/26: Doing much better, will d/c on PO antibiotics and made sure patient understands the importance of making his dental appt on saturday Status: Acute (2) Dental abscess Status: Acute (3) HTN (hypertension) Assessment & Plan: - Will start lisinopril, monitor for improvement Status: Acute Chief Complaint/HPI Chief Complaint/HPI 30 yo M that presented with facial swelling x 1 day. States that he started feeling some pain and swelling yesterday but then when he was at work he started getting numbness and noticed that his face was getting swollen. Denies any vision changes or shortness of breath. He has been able to eat and drink normally. States that he saw a dentist last week and was started on antibiotics and then has an upcoming appt on saturday to get treatment. Discharge Summary-Simple/Stand Consultations Discharge Physical Examination Allergies: Coded Allergies: No Known Drug Allergies (Unverified , 04/18/18) Vitals & I&Os Vital Sign - Last 12Hours Date Time Temp Pulse Resp B/P (MAP) Pulse Ox O2 Delivery O2 Flow Rate FiO2 05/26/20 08:00 96 Room Air 05/26/20 07:40 36.8 76 20 158/74 (102) Intake and Output 05/26/20 00:00 Intake Total 2040 ml Balance 2040 ml General Appearance: Alert, Oriented X3, Cooperative, No Acute Distress HEENT: PERRLA, EOMI, Other (mild swelling present on left upper jaw) Respiratory: Clear to Auscultation, Normal Air Movement Cardiovascular: Regular Rate, No Murmurs Abdominal: Normal Bowel Sounds, Soft, No Tenderness, No Masses Extremities: No Edema, No Tenderness/Swelling Skin: No Rashes, No Breakdown Neuro: Normal Speech, Strength at 5/5 X4 Ext, Sensation Intact, Cranial Nerves 3-12 NL Psych/Mental Status: Mental Status NL, Mood NL Hospital Course Was the Problem List Reviewed?: Yes See final discharge diagnosis. Discussion & Recommendations 30 yo M with facial cellulitis from a dental abscess. Patient was started on IV antibiotics given severity of swelling. EOM remained intact throughout admission. Eyelids were able to open fully at time of discharge. Tolerated antibiotics well. Will d/c home with close f.u. Discharge Condition at discharge stable Instructions to patient/family Please see electronic discharge instructions given to patient. Discharge Medications Reviewed and agree with Discharge Medication list on patient's Discharge Instruction sheet Clinical Quality Measures DVT/VTE Risk/Contraindication: Risk Factor Score Per Nursin RFS Level Per Nursing on Admit: 1=Low/No VTE PPX JEANINE BADILLO MD May 26, 2020 10:54
[2020-05-26] MEDS ORDERED: LISI10TA2 PO (10:56)
[2020-05-26] MEDS ORDERED: HYDR-83 PO (10:56)
--- NOTE | 2020-05-26 10:58 | Discharge Summary ---
Discharge [facility] Reconcile Patient Problems Problems Reviewed?: Yes Discharge Medications New, Converted or Re-Newed RX: RX on Chart New Medications: Hydrocodone/Acetaminophen (Hydrocodone-Acetamin 5-325 mg) 1 Each Tablet 1 EACH PO Q6H PRN for PAIN-MODERATE (5-7), #10 TAB Lisinopril (Lisinopril) 10 Mg Tablet 10 MG PO DAILY, #30 TAB Continued Medications: Amoxicillin/Potassium Clav (Augmentin 875-125 Tablet) 1 Each Tablet 1 EACH PO Q12H, TAB FILLED 05-24-2020 #20/10 DAY SUPPLY Calcium Carbonate/Simethicone (Bettie-Mineral Heartburn+Gas) 1 Each Tab.chew 1-2 EACH PO TID PRN for HEARTBURN/GAS, TAB Ibuprofen (Ibuprofen) 200 Mg Tablet 600 MG PO Q8H PRN for PAIN-MILD (1-4), TAB Discontinued Medications: Diphenhydramine HCl (Benadryl) 25 Mg Capsule 25-50 MG PO Q6H PRN for ALLERGY SYMPTOMS, CAP Patient Instructions Goal/Follow Up Appt: Make sure to keep your appt with the dental clinic on Saturday Patient Instructions: - Complete your antibiotics - Warm salt water gargles or use a mouth wash Activity & Diet Discharge Diet: Cardiac Diet Activity as Tolerated: Yes JEANINE BADILLO MD May 26, 2020 10:57
[2020-05-26 12:00] VITALS: BP 158/74
--- NOTE | 2020-05-26 12:12 | NUR ---
RUDY PAINTING II demonstrates understanding of discharge instructions and accurately returns instructions upon questioning. Copy of Post-Discharge Instructions and Medication Discharge Instructions given to PT. RUDY PAINTING II is able to manage continuing needs after discharge. Patients belongings returned to PT. Skin dry and intact; no breakdown noted. Patient discharged from 408-1 on at . RUDY PAINTING II left floor AMBULATING, accompanied by STAFF.
--- NOTE | 2020-05-26 14:08 | NUR ---
MR PAINTING CALLED AND INFORMED THAT HIS PRESCRIPTION HAS BEEN SENT BY DR BADILLO TO [facility], [place], [facility]
== END 2020-05-26 10:54 | disposition home or self-care (01) ==
LOC: EDUNIT# 16:05 → ER 16:06 → UNDOADMOB 17:39 → 4TH 17:39 → UNDODISOB 05-26 12:00
PROVIDERS: ADMIT Family Medicine; ATTEND Family Medicine
DX: K04.7 Periapical abscess without sinus (principal); K02.9 Dental caries, unspecified; L03.211 Cellulitis of face; F17.210 Nicotine dependence, cigarettes, uncomplicated; I10 Essential (primary) hypertension; Z79.899 Other long term (current) drug therapy
CPT/HCPCS: 70487; 80048; 80053 ×2; 82150; 83605; 83690; 84145; 85025 ×3; 85610; 85730; 87040; 99284; G0378; 36415

== ENCOUNTER 2021-04-17 03:39 | Emergency (ER) | payer SELFPAY ==
[~2021-04-17 03:39] MED LIST changes: +ACHD5005 PO; +AMOX-358 PO; +CALC-899 PO; +DIPH25CA79 PO; +IBUP-2473 PO; +LISI10TA25 PO
[2021-04-17 04:06] VITALS: BP 157/72
[2021-04-17] MEDS ORDERED: LIDOCAINE 2% VISCOUS 15 ML UDC PO ONE (04:30)
--- NOTE | 2021-04-17 04:32 | ED EENT ---
History of Present Illness General Chief Complaint: Dental Problems/Pain Stated Complaint: TOOTH/FACIAL PAIN Nursing Triage Note: TO ED VIA POV AND AMBULATORY TO ROOM 6 WITH C/O TOOTH ABCESS TO TOP LEFT SIDE THAT SINCE SATURDAY. WOKE UP APPROX 0230 WITH EXTREME PAIN THAT RADIATES TO LEFT EYE. TOOK TYLENOL AND IBUPROFEN AT THAT TIME. Source: patient Exam Limitations: no limitations (GRAYSON TRAN STUDENT) History of Present Illness Date Seen by Provider: April 17, 2021 Time Seen by Provider: 04:15 Initial Comments Pt presents to ED via POV with complaint of dental pain. He states that the pain began 5 days ago on and describes it as throbbing, constant p ain/pressure in his L upper jaw and L maxilla. He has been nauseated w/o vomiting. He states that he felt chills last night in bed. He took Tylenol 500mg and Ibuprofen 600mg about 1.5hrs prior to arrival with no alleviation of pain. He states that 3-4mos ago he had a dental abscess that he had treated at this ED. He denies other symptoms of chest pain, SOB, vomiting, abd pain. Timing/Duration: other (onset 5 days ago) Severity: moderate Location: dental (L maxilla) Prearrival Treatment: over the counter meds (500mg Tylenol, 600mg Ibuprofen) Presenting Symptoms/Injuries: L upper jaw pain Associated Symptoms: No cough, No ear drainage; facial pain/swelling (mild swelling L face); No fever, No sore throat; tooth pain (GRAYSON TRAN STUDENT) Allergies and Home Medications Allergies Coded Allergies: No Known Drug Allergies (Unverified , 04/18/18) Home Medications Amoxicillin/Potassium Clav 1 Each Tablet, 1 EACH PO Q12H, (Reported) FILLED 05-24-2020 #20/10 DAY SUPPLY Calcium Carbonate/Simethicone 1 Each Tab.chew, 1-2 EACH PO TID PRN for HEARTBURN/GAS, (Reported) Hydrocodone/Acetaminophen 1 Each Tablet, 1 EACH PO Q6H PRN for PAIN-MODERATE (5- 7) Prescribed by: JEANINE BADILLO on 05/26/20 1056 Ibuprofen 200 Mg Tablet, 600 MG PO Q8H PRN for PAIN-MILD (1-4), (Reported) Lisinopril 10 Mg Tablet, 10 MG PO DAILY Prescribed by: JEANINE BADILLO on 05/26/20 1056 Patient Home Medication List Home Medication List Reviewed: Yes (GRAYSON TRAN) Review of Systems Review of Systems Constitutional: chills; No fever, No weakness Eyes: Denies Blurred Vision, Denies Decreased Acuity, Denies Pain Ears: Denies Pain, Denies Tinnitus Nose: denies pain, denies bloody discharge Mouth: pain (L upper jaw) Throat: denies pain, denies swelling, denies painful swallowing Respiratory: No cough, No short of breath Cardiovascular: No chest pain, No edema, No palpitations Gastrointestinal: No abdominal pain, No constipation, No diarrhea; nausea; No vomiting Musculoskeletal: No back pain, No joint pain, No joint swelling Skin: No change in color, No lesions, No rash Neurological: Denies Headache, Denies Numbness, Denies Paresthesia, Denies Tingling (GRAYSON TRAN) All Other Systems Reviewed Negative Unless Noted: Yes (GRAYSON TRAN) Past Wkcshln-Kvgaii-Sxpxcu Hx Past Med/Social Hx: Reviewed Nursing Past Med/Soc Hx (GRAYSON TRAN) Patient Social History Alcohol Use: Occasionally Uses Smoking Status: Current Everyday Smoker (1/2ppd for 10 years) Type Used: Cigarettes 2nd Hand Smoke Exposure: No Recent Infectious Disease Expo: No Recent Hopitalizations: No (GRAYSON TRAN) Alcohol Use: Denies Use (EVER PALMER) Seasonal Allergies Seasonal Allergies: No (GRAYSON TRAN) Past Medical History Surgeries: No Respiratory: No Cardiac: No Neurological: No Genitourinary: No Gastrointestinal: No Musculoskeletal: No Endocrine: No HEENT: Yes (DENTAL CARIES) Cancer: No Psychosocial: No Integumentary: No Blood Disorders: No (GRAYSON TRAN) Physical Exam Vital Signs Vital Signs - First Documented 04/17/21 04:06 Temp 37.1 Pulse 95 Resp 18 B/P (MAP) 157/72 (100) O2 Delivery Room Air (EVER PALMER) Height, Weight, BMI Height: 5'9.00" Weight: 245lbs. oz. 111.250931vo; 35.27 BMI Method:Stated General Appearance: WD/WN, no apparent distress Eyes: bilateral eye normal inspection, bilateral eye PERRL, bilateral eye EOMI Ears: bilateral ear auricle normal, bilateral ear canal normal Nose: normal inspection; No active bleeding Mouth/Throat: dental tenderness (poor dentition, missing L canine), maxillary swelling (mild swelling to L maxilla/periorbital) Neck: non-tender, full range of motion, supple, normal inspection Cardiovascular: normal peripheral pulses, regular rate, rhythm, no edema Respiratory: chest non-tender, lungs clear, normal breath sounds, no respiratory distress, no accessory muscle use Gastrointestinal: normal bowel sounds, non tender, soft; No distended, No guarding Neurologic/Psychiatric: no motor/sensory deficits, alert, normal mood/affect, oriented x 3 Skin: normal color, warm/dry (GRAYSON TRAN MED STUDENT) Progress/Results/Core Measures Results/Orders My Orders Orders - EVER PALMER Lidocaine 2% Viscous 15 Ml (Xylocaine Vi (04/17/21 04:30) Amoxicillin/Clavulanate Tablet (Augmenti (04/17/21 09:00) (EVER PALMER) Vital Signs/I&O 04/17/21 04:06 Temp 37.1 Pulse 95 Resp 18 B/P (MAP) 157/72 (100) O2 Delivery Room Air (EVER PALMER) Blood Pressure Mean: 100 Progress Progress Note : Time: 04:43 Progress Note I attest that I saw this patient alongside the medical student and agree with his documented history, physical exam and review of systems except as otherwise noted. Discussed appropriate doses of Tylenol, Motrin or naproxen. Viscous lidocaine and first dose of antibiotics. (EVER PALMER) Departure Impression Primary Impression: Dental abscess Disposition: 01 HOME, SELF-CARE Condition: Stable Departure-Patient Inst. Decision time for Depature: 04:43 (EVER PALMER) Referrals: NO,LOCAL PHYSICIAN (PCP/Family) Primary Care Physician Patient Instructions: Dental Pain (DC) Add. Discharge Instructions: Heat applied to your face as necessary for pain and swelling. Tylenol 1000 mg every 8 hours as necessary for pain. Ibuprofen 800 mg every 8 hours as necessary for pain. Alternatively you may use naproxen 2 tablets twice a day. Augmentin 1 tablet twice a day with food for the next week. 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 Follow-up with your dentist. All discharge instructions reviewed with patient and/or family. Voiced understanding. Scripts [viscous Lidocaine] 2% No Conflict Check 5 ML DT Q6H PRN for PAIN-BREAKTHROUGH, #100 ML 0 Refills Prov: EVER PALMER 04/17/21 Amoxicillin/Potassium Clav (Augmentin 875-125 Tablet) 1 Each Tablet 1 EACH PO BID for 7 Days, #14 TAB 0 Refills Prov: EVER PALMER 04/17/21 GRAYSON TRAN MED STUDENT April 17, 2021 04:32 EVER PALMER April 17, 2021 04:46
[2021-04-17] MEDS ORDERED: viscous Lidocaine DT (04:45)
[2021-04-17] MEDS ORDERED: AMOX-358 PO (04:45)
[2021-04-17] MEDS ORDERED: AUGMENTIN 875 MG TAB (AMOXICILLIN/CLAVULANATE) ONE (04:47)
[2021-04-17] MEDS ORDERED: AUGMENTIN 875 MG TAB (AMOXICILLIN/CLAVULANATE) PO ONE (09:00)
== END 2021-04-17 04:59 | disposition home or self-care (01) ==
LOC: EDUNIT# 03:39 → ER 03:41
DX: K04.7 Periapical abscess without sinus (principal); F17.210 Nicotine dependence, cigarettes, uncomplicated
CPT/HCPCS: 99283

== ENCOUNTER 2023-09-19 13:45 | Emergency (ER) | payer OTHER ==
[~2023-09-19 13:45] MED LIST changes: +viscous Lidocaine DT
--- NOTE | 2023-09-19 13:58 | ED Upper Extremity ---
General Stated Complaint: WC | LT THUMB INJ Source: patient Exam Limitations: no limitations History of Present Illness Date Seen by Provider: Sep 19, 2023 Time Seen by Provider: 13:54 Initial Comments Patient is a 33-year-old male who presents ED with left thumb injury. This occurred 30 minutes ago. States his finger got caught between a saw horse and pallet full of metal. This resulted in a left thumb injury with nailbed involvement. Bleeding controlled direct pressure. Not up-to-date his tetanus. Reports numbness and tingling. Patient is able to flex his left thumb. Patient denies of any significant pain. Patient is not on blood thinners. Significant tissue involvement of the left distal thumb. Allergies and Home Medications Allergies Coded Allergies: No Known Drug Allergies (Unverified , 04/18/18) Patient Home Medication List Home Medication List Reviewed: Yes Amoxicillin/Potassium Clav (Augmentin 875-125 Tablet) 1 Each Tablet, 1 EACH PO Q12H, (Reported) Entered as Reported by: LIZETTE BERGERON on 05/25/20 08 Amoxicillin/Potassium Clav (Augmentin 875-125 Tablet) 1 Each Tablet, 1 EACH PO BID Prescribed by: EVER PALMER on 04/17/21 0445 Calcium Carbonate/Simethicone (Bettie-Carroll Heartburn+Gas) 1 Each Tab.chew, 1-2 EACH PO TID PRN for HEARTBURN/GAS, (Reported) Entered as Reported by: LIZETTE BERGERON on 05/25/20814 Hydrocodone/Acetaminophen (Hydrocodone-Acetamin 5-325 mg) 1 Each Tablet, 1 EACH PO Q6H PRN for PAIN-MODERATE (5-7) Prescribed by: JEANINE BADILLO on 05/26/20 1056 Ibuprofen (Ibuprofen) 200 Mg Tablet, 600 MG PO Q8H PRN for PAIN-MILD (1-4), (Reported) Entered as Reported by: LIZETTE BERGERON on 05/25/20814 Lisinopril (Lisinopril) 10 Mg Tablet, 10 MG PO DAILY Prescribed by: JEANINE BADILLO on 05/26/20 1056 [viscous Lidocaine] 2% , 5 ML DT Q6H PRN for PAIN-BREAKTHROUGH Prescribed by: EVER PALMER on 04/17/21 0445 Review of Systems Constitutional: No chills, No diaphoresis, No malaise, No weakness EENTM: No ear pain, No blurred vision Respiratory: No cough, No dyspnea on exertion Cardiovascular: No chest pain Gastrointestinal: No abdominal pain, No nausea, No vomiting Genitourinary: No decreased output, No discharge Musculoskeletal: No back pain; joint pain, muscle pain Skin: change in color; No change in hair/nails Past Sotxwzk-Vkakvj-Uhlxim Hx Seasonal Allergies Seasonal Allergies: No Past Medical History Surgeries: No Respiratory: No Cardiac: No Neurological: No Genitourinary: No Gastrointestinal: No Musculoskeletal: No Endocrine: No HEENT: Yes (DENTAL CARIES) Cancer: No Psychosocial: No Integumentary: No Blood Disorders: No Physical Exam Vital Signs Vital Signs - First Documented 09/19/23 13:50 Pulse 86 Resp 18 B/P (MAP) 153/97 (115) Pulse Ox 97 Capillary Refill : Height, Weight, BMI Height: 5'9.00" Weight: 245lbs. oz. 111.970442at; 35.27 BMI Method:Stated General Appearance: WD/WN, no apparent distress HEENT: PERRL/EOMI, normal ENT inspection, TMs normal, pharynx normal Neck: non-tender, full range of motion, supple Cardiovascular: regular rate, rhythm, no edema, no gallop Respiratory: chest non-tender, lungs clear, normal breath sounds, no respiratory distress, no accessory muscle use Gastrointestinal: normal bowel sounds, non tender, soft Elbow/Forearm: normal inspection, non-tender, Left Wrist: Yes normal inspection, Yes non-tender, Yes normal ROM (left) Hand: Left (Crush injury to left distal thumb with nailbed involvement. 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 Nailbed crush injury. Significant tissue destruction to the distal tip of the left thumb) Progress/Results/Core Measures Results/Orders Lab Results Laboratory Tests Test 09/19/23 14:13 Range/Units White Blood Count 7.9 4.3-11.0 10^3/uL Red Blood Count 5.01 4.30-5.52 10^6/uL Hemoglobin 15.8 13.3-17.7 g/dL Hematocrit 45 40-54 % Mean Corpuscular Volume 89 80-99 fL Mean Corpuscular Hemoglobin 32 25-34 pg Mean Corpuscular Hemoglobin Concent 35 32-36 g/dL Red Cell Distribution Width 11.9 10.0-14.5 % Platelet Count 345 130-400 10^3/uL Mean Platelet Volume 9.2 9.0-12.2 fL Immature Granulocyte % (Auto) 0 % Neutrophils (%) (Auto) 60 42-75 % Lymphocytes (%) (Auto) 30 12-44 % Monocytes (%) (Auto) 6 0-12 % Eosinophils (%) (Auto) 3 0-10 % Basophils (%) (Auto) 1 0-10 % Neutrophils # (Auto) 4.7 1.8-7.8 10^3/uL Lymphocytes # (Auto) 2.4 1.0-4.0 10^3/uL Monocytes # (Auto) 0.5 0.0-1.0 10^3/uL Eosinophils # (Auto) 0.2 0.0-0.3 10^3/uL Basophils # (Auto) 0.1 0.0-0.1 10^3/uL Immature Granulocyte # (Auto) 0.0 0.0-0.1 10^3/uL Sodium Level 137 135-145 MMOL/L Potassium Level 3.6 3.6-5.0 MMOL/L Chloride Level 104 98-107 MMOL/L Carbon Dioxide Level 22 21-32 MMOL/L Anion Gap 11 5-14 MMOL/L Blood Urea Nitrogen 8 7-18 MG/DL Creatinine 0.87 0.60-1.30 MG/DL Estimat Glomerular Filtration Rate 118 BUN/Creatinine Ratio 9 Glucose Level 106 H 70-105 MG/DL Calcium Level 9.2 8.5-10.1 MG/DL Corrected Calcium 8.5-10.1 MG/DL Total Bilirubin 0.8 0.1-1.0 MG/DL Aspartate Amino Transf (AST/SGOT) 26 5-34 U/L Alanine Aminotransferase (ALT/SGPT) 46 0-55 U/L Alkaline Phosphatase 86 40-136 U/L Total Protein 7.6 6.4-8.2 GM/DL Albumin 4.7 H 3.2-4.5 GM/DL My Orders Orders - NANCY COLON Hand, Left, 3 Views (09/19/23 13:53) Cefazolin Injection (Cefazolin Injecti (09/19/23 14:00) Dipht/Pertuss(Acell)/Tet Adult (Dipht/Pe (09/19/23 14:00) Cbc And Automated Diff (09/19/23 13:53) Comprehensive Metabolic Panel (09/19/23 13:53) Lidocaine 1% Inj 20 Ml (Xylocaine 1% Inj (09/19/23 14:15) Bupivacaine 0.5% 30 Ml Inj (Bupivacaine (09/19/23 14:58) Medications Given in ED Current Medications Medications Dose Ordered Sig/Merline Route Start Time Stop Time Status Last Admin Dose Admin Bupivacaine HCl 30 ml STK-MED ONCE .ROUTE 09/19/23 14:58 09/19/23 15:01 DC 09/19/23 15:10 2 ML Cefazolin Sodium 2000 mg/Sodium Chloride 50 ml @ 100 mls/hr ONCE ONCE IV 09/19/23 14:00 09/19/23 14:29 DC 09/19/23 14:34 100 MLS/HR Diphtheria/ Tetanus/Acell Pertussis 0.5 ml ONCE ONCE IM 09/19/23 14:00 09/19/23 14:01 DC 09/19/23 14:36 0.5 ML Vital Signs/I&O 09/19/23 13:50 Pulse 86 Resp 18 B/P (MAP) 153/97 (115) Pulse Ox 97 Departure Communication (PCP) Patient presents ED with left thumb injury. This occurred while at work 30 minutes before arrival. Smashed his left thumb between a saw horse, metal pallet and a forklift. This resulted in a crush injury to his left thumb. Bone exposure. Nail avulsion with significant tissue damage. IV was started. Received Ancef 2 g. Performed a digital block with bupivacaine 4ml with improvement. Tolerated procedure well. Updated his tetanus. Pain better controlled. X-ray did note Comminuted intra-articular fractures of the distal phalanx of the thumb with extensive overlying soft tissue injury. Concern for open fracture. Discussed patient with orthopedic Dr. Talley who recommended contacting hand. Contacted [facility] who do not have hand specialty on- call. Did contact [facility] and discussed this with their orthopedic Dr. Squires. They agreed to accept patient with hand specialty evaluation. Patient will be transferred by POV. I do think this is reasonable since patient is he modynamically stable. IV was removed. Currently NPO. Patient will need irrigation, closure and potential pin in that left thumb secondary to the fracture. Extensive irrigation with normal saline here in the ED of the left thumb. Slightly contaminated. Applied Xeroform and bandage here in ED before transfer Impression Primary Impression: Open fracture of thumb Additional Impression: Crush injury Disposition: 02 XFER SHT-TRM HOSP Condition: Stable Transfer Medically Cleared for Xfer: Yes Transfer Reason: Exceeds level of care Time Spoke to Accepting Phy: 16:34 Transfer Progress Notes Accepted Dr. Squires Transfer Time: 16:34 Transfer Facility: [facility] Method of Transfer: Private Vehicle Departure-Patient Inst. Referrals: NO,LOCAL PHYSICIAN (PCP/Family) Primary Care Physician NANCY COLON Sep 19, 2023 13:58
[2023-09-19] MEDS ORDERED: ceFAZolin INJECTION 2,000 MG in NS (IVPB) 50 ML 50 ML IV ONE (14:00)
[2023-09-19] MEDS ORDERED: Tetanus/Diphtheria/Pertussis (Acell) ADULT Vaccine 0.5 ML IM ONE (14:00)
[2023-09-19] MEDS ORDERED: LIDOCAINE 1% INJ 20 ML VIAL INJ ONE (14:15)
[2023-09-19 14:16] LABS: BASOPHILS # (AUTO) 0.1 10^3/uL (0.0-0.1); BASOPHILS % (AUTO) 1 % (0-10); EOSINOPHILS # (AUTO) 0.2 10^3/uL (0.0-0.3); EOSINOPHILS % (AUTO) 3 % (0-10); HEMATOCRIT 45 % (40-54); HEMOGLOBIN 15.8 g/dL (13.3-17.7); LYMPHOCYTES # (AUTO) 2.4 10^3/uL (1.0-4.0); LYMPHOCYTES % (AUTO) 30 % (12-44); MEAN CORPUSCULAR HEMOGLOBIN 32 pg (25-34); MEAN CORPUSCULAR HGB CONC 35 g/dL (32-36); MEAN CORPUSCULAR VOLUME 89 fL (80-99); MEAN PLATELET VOLUME 9.2 fL (9.0-12.2); MONOCYTES # (AUTO) 0.5 10^3/uL (0.0-1.0); MONOCYTES % (AUTO) 6 % (0-12); NEUTROPHILS # (AUTO) 4.7 10^3/uL (1.8-7.8); NEUTROPHILS % (AUTO) 60 % (42-75); PLATELET COUNT 345 10^3/uL (130-400); WHITE BLOOD COUNT 7.9 10^3/uL (4.3-11.0)
--- NOTE | 2023-09-19 14:27 | Diagnostic Imaging Report ---
Indication: Crush injury to the thumb FINDINGS: Comminuted fractures of the distal phalanx of the thumb proximally extending to the joint surface where there is no articular offset. There is extensive overlying soft tissue irregularities. Proximal phalanx and metacarpal intact. The remaining osseous and soft tissue structures of the hand appeared normal. IMPRESSION: Comminuted intra-articular fractures of the distal phalanx of the thumb with extensive overlying soft tissue injury. Dictated by: Dictated on workstation # [id number]
[2023-09-19 14:28] LABS: ALBUMIN 4.7 GM/DL (3.2-4.5); CHLORIDE 104 MMOL/L (98-107); POTASSIUM 3.6 MMOL/L (3.6-5.0); SODIUM 137 MMOL/L (135-145)
[2023-09-19 14:29] LABS: CALCIUM 9.2 MG/DL (8.5-10.1)
[2023-09-19 14:30] LABS: GLUCOSE 106 MG/DL (70-105)
[2023-09-19 14:31] LABS: TOTAL PROTEIN 7.6 GM/DL (6.4-8.2)
[2023-09-19 14:32] LABS: BILIRUBIN,TOTAL 0.8 MG/DL (0.1-1.0); CARBON DIOXIDE 22 MMOL/L (21-32)
[2023-09-19 14:34] LABS: ALKALINE PHOSPHATASE 86 U/L (40-136); CREATININE SERUM 0.87 MG/DL (0.60-1.30); GFR ESTIMATED 118
[2023-09-19 14:35] LABS: BUN/CREATININE RATIO 9
[2023-09-19 14:37] LABS: ALANINE AMINOTRANSFERASE 46 U/L (0-55)
[2023-09-19] MEDS ORDERED: BUPIVACAINE 0.5% 30 ML VIAL ONE (14:58)
[2023-09-19 17:04] VITALS: BP 140/82
== END 2023-09-19 17:04 | disposition short-term general hospital (02) ==
LOC: EDUNIT# 13:45 → ER 13:46
DX: S62.522B Displaced fracture of distal phalanx of left thumb, initial encounter for open fracture (principal); Z23 Encounter for immunization; W23.0XXA Caught, crushed, jammed, or pinched between moving objects, initial encounter
CPT/HCPCS: 36415; 64450; 73130; 80053; 85025; 90715